=== PATIENT | male | born 1945 | race Caucasian/White ===

== ENCOUNTER 2022-11-15 09:17 | Outpatient (CLI) | payer MEDICARE ==
[~2022-11-15] VITALS: Ht 182.9 cm; Wt 82.1 kg
[2022-11-15 10:03] LABS: APTT 29 SECONDS (22-32)
[2022-11-15 10:05] LABS: ALANINE AMINOTRANSFERASE 23 U/L (12-78); ALBUMIN 3.8 G/DL (3.4-5.0); ALBUMIN/GLOBULIN RATIO 1.2 (1.1-1.5); ALKALINE PHOSPHATASE 108 IU/L (46-116); ANION GAP 3 (8-16); ASPARTATE AMINO TRANSFERASE 16 U/L (10-37); BILIRUBIN,TOTAL 1.7 MG/DL (0.1-1.0); BLOOD UREA NITROGEN 22 MG/DL (7-18); BUN/CREATININE RATIO 22.2 (10.0-20.0); CALCIUM 8.9 MG/DL (8.5-10.1); CHLORIDE 107 MMOL/L (99-107); CREATININE 0.99 MG/DL (0.60-1.10); GLUCOSE 129 MG/DL (70-104); SODIUM 139 MMOL/L (135-145); TOTAL CARBON DIOXIDE 28.7 MMOL/L (24-32); eGFR 74 ML/MIN
[2022-11-15 10:07] LABS: BASOPHILS # (AUTO) 0.1 X10'3 (0-0.2); BASOPHILS % (AUTO) 1.2 % (0-1); EOSINOPHILS # (AUTO) 0.1 X10'3 (0-0.9); EOSINOPHILS % (AUTO) 1.4 % (0-6); HEMOGLOBIN 15.3 g/dl (14.0-17.9); LYMPHOCYTES # (AUTO) 1.7 X10'3 (1.1-4.8); LYMPHOCYTES % (AUTO) 23.7 % (21-51); MEAN CORPUSCULAR HEMOGLOBIN 29.3 PG (27.0-31.0); MEAN CORPUSCULAR HGB CONC 33.3 g/dL (33.0-36.5); MEAN CORPUSCULAR VOLUME 87.8 FL (78-98); MEAN PLATELET VOLUME 7.7 FL (7.4-10.4); MONOCYTES # (AUTO) 0.6 X10'3 (0-0.9); MONOCYTES % (AUTO) 8.6 % (2-12); NEUTROPHILS # (AUTO) 4.7 X10'3 (1.8-7.7); NEUTROPHILS % (AUTO) 65.1 % (42-75); PLATELET COUNT 201 X10'3 (140-440); RED BLOOD COUNT 5.24 X10'6 (4.70-6.10); RED CELL DISTRIBUTION WIDTH 14.3 % (11.5-14.5); WHITE BLOOD COUNT 7.3 X10'3 (4.5-11.0)
[2022-11-15] MEDS ORDERED: IODIXANOL 320 MG/ML INFUS..BTL 100ML IV ONE (10:30)
[2022-11-15] MEDS ORDERED: albuterol 2.5 MG/3 ML nebule NEB ONE (11:50)
[2022-11-15 12:03] LABS: ABG BASE EXCESS -1.1 mmol/L (-2.0-2.0); ABG HCO3 22.3 mmol/L (22.0-26.0); ABG OXYGEN SATURATION 97.7 % (94-97); ALLEN'S TEST POSITIVE; FCOHb 1.5 % (0.0-3.9); FMetHb 0.3 % (0.0-1.5); FO2Hb 95.9 % (94-97); TOTAL HEMOGLOBIN 15.9 G/dl (14.0-17.9)
== END 2022-11-15 23:59 | disposition home or self-care (01) ==
LOC: RAD 09:17
PROVIDERS: ATTEND Internal Medicine Cardiovascular Disease
DX: K57.30 Diverticulosis of large intestine without perforation or abscess without bleeding (principal); R06.02 Shortness of breath; I65.23 Occlusion and stenosis of bilateral carotid arteries; R94.2 Abnormal results of pulmonary function studies; I35.8 Other nonrheumatic aortic valve disorders; M47.814 Spondylosis without myelopathy or radiculopathy, thoracic region; Z90.49 Acquired absence of other specified parts of digestive tract
CPT/HCPCS: 36415; 36600; 71046; 71275; 74174; 80053; 82803; 83880; 85018; 85025; 85610; 85730; 93880; 94060; 94727; 94729; 94760; J3490; Q9967

== ENCOUNTER 2022-12-21 05:38 | Inpatient (IN) | payer MEDICARE ==
[2022-12-14 14:38] LABS: BASOPHILS # (AUTO) 0.1 X10'3 (0-0.2); BASOPHILS % (AUTO) 0.8 % (0-1); CLARITY,URINE CLEAR (Clear); COLOR,URINE YELLOW (Yellow); EOSINOPHILS # (AUTO) 0.1 X10'3 (0-0.9); EOSINOPHILS % (AUTO) 1.6 % (0-6); GLUCOSE, URINE NEGATIVE (Neg); KETONES,URINE NEGATIVE (Neg); LEUKOCYTE ESTERASE ,URINE NEGATIVE (Neg); LYMPHOCYTES # (AUTO) 1.6 X10'3 (1.1-4.8); LYMPHOCYTES % (AUTO) 23.4 % (21-51); MEAN CORPUSCULAR HEMOGLOBIN 29.7 PG (27.0-31.0); MEAN CORPUSCULAR HGB CONC 33.8 g/dL (33.0-36.5); MEAN CORPUSCULAR VOLUME 87.7 FL (78-98); MEAN PLATELET VOLUME 7.7 FL (7.4-10.4); MONOCYTES # (AUTO) 0.6 X10'3 (0-0.9); MONOCYTES % (AUTO) 8.6 % (2-12); NEUTROPHILS # (AUTO) 4.5 X10'3 (1.8-7.7); NEUTROPHILS % (AUTO) 65.6 % (42-75); NITRITES, URINE NEGATIVE (Neg); OCCULT BLOOD,URINE NEGATIVE (Neg); PH,URINE 5.5 (4.8-8.0); PRE OP HEMATOCRIT 44.7 % (42.0-52.0); PRE OP HEMOGLOBIN 15.1 g/dL (14.0-17.9); PRE OP PLATELET COUNT 180 X10'3 (140-440); PROTEIN,URINE NEGATIVE (Neg); RED CELL DISTRIBUTION WIDTH 14.3 % (11.5-14.5); UROBILINOGEN,URINE 0.2 E.U/dL (0.2-1.0)
[2022-12-14 14:47] LABS: UA COLLECTION TYPE NON-SPECIFIED
[2022-12-14 14:55] LABS: PRE OP PROTIME 11.1 SECONDS (9.0-12.0)
[2022-12-14 14:59] LABS: ALBUMIN 3.8 G/DL (3.4-5.0); ALBUMIN/GLOBULIN RATIO 1.2 (1.1-1.5); ALKALINE PHOSPHATASE 108 IU/L (46-116); BLOOD UREA NITROGEN 24 MG/DL (7-18); BUN/CREATININE RATIO 22.6 (10.0-20.0); CALCIUM 8.6 MG/DL (8.5-10.1); CHLORIDE 106 MMOL/L (99-107); CREATININE 1.06 MG/DL (0.60-1.10); PRE OP ALT 22 U/L (30-65); PRE OP ANION GAP 8 (8-16); PRE OP AST 18 U/L (10-37); PRE OP BILIRUB, TOTAL 1.5 MG/DL (0.0-1.0); PRE OP GLUCOSE 126 MG/DL (70-104); PRE OP POTASSIUM 3.7 MMOL/L (3.4-5.1); PRE OP SODIUM 143 MMOL/L (135-145); TOTAL CARBON DIOXIDE 29.3 MMOL/L (24-32); TOTAL PROTEIN 7.1 G/DL (6.4-8.2); eGFR 68 ML/MIN
[~2022-12-21] VITALS: Ht 182.9 cm; Wt 80.3 kg
[2022-12-21] VITALS (17 sets, daily range): BP systolic 99–133; BP diastolic 55–79
[~2022-12-21 05:38] MED LIST: ASPI-1071 PO; ATEN25TA PO; CHOL10006 PO; DOCUMENT DATE & TIME OF BETA-BLOCKER PO ONE; MAGN250T11 PO; aspirin 325mg tablet PO ONE; cefazolin 2gm/D5W 100mL 100 ML IV ONE; famotidine 20mg tablet PO ONE; nitroPRUSSIDE (NIPRIDE) (200MCG/ML) 100ML Drip IV SCH; ondansetron/PF 4mg/2ml inj IV PRN; phenylephrine inj 50 MG in normal saline 250ml IV solN IV SCH; ringers solution, lacted 1,000 ML IV SCH; vancomycin 1,500 MG in NS 300ml IV soln IV ONE
[2022-12-21] MEDS ORDERED: iohexol 350MG/ML 100ml bottle IV ONE (08:16)
[2022-12-21] MEDS ORDERED: heparin 1,000 UNITS/NS 500ml 1,500 ML ONE (08:17)
[2022-12-21] MEDS ORDERED: fentaNYL/PF 50MCG/1 ML 2ML syringe ONE (08:58)
[2022-12-21] MEDS ORDERED: LIDOcaine 1% (10mg/ml)w/preservative inj. 20ml MDV ONE (08:59)
[2022-12-21] MEDS ORDERED: midazolam 1 mg/ML 2ml injection ONE (09:12)
[2022-12-21] MEDS ORDERED: propofol inj 20 ML IV ONE ×3 (09:12)
[2022-12-21] MEDS ORDERED: protamine sulfate 10mg/ml inj. ONE (09:17)
[2022-12-21] MEDS ORDERED: heparin 1,000unit/ml 10ml vial 10 ML ONE (09:25)
[2022-12-21] MEDS ORDERED: acetaminophen 325mg tablet PO PRN (10:20)
[2022-12-21] MEDS ORDERED: labetalol 20mg/4ml (5mg/ml) syringe IV PRN ×2 (10:20→10:30)
[2022-12-21] MEDS ORDERED: pantoprazole 40mg Tablet.DR PO PRN (10:20)
[2022-12-21] MEDS ORDERED: potassium Cl 40MEQ/1/2NS 520ml 520 ML IV PRN (10:20)
[2022-12-21] MEDS ORDERED: HYDROcodone/acetaminophen 5mg/325mg tablet PO PRN (10:20)
[2022-12-21] MEDS ORDERED: hydrALAZINE 20mg/ml inj. IV PRN ×2 (10:20→10:30)
[2022-12-21] MEDS ORDERED: proCHLORperazine 10 MG/2 ml inj IV PRN ×2 (10:20→10:30)
[2022-12-21] MEDS ORDERED: magnesium 2GM in 50ml NS 50 ML IV PRN (10:20)
[2022-12-21] MEDS ORDERED: docusate sod 100mg capsule PO PRN (10:20)
[2022-12-21] MEDS ORDERED: ondansetron/PF 4mg/2ml inj IV PRN ×2 (10:20→10:30)
[2022-12-21] MEDS ORDERED: magnesium 4gm in 100ml NS 100 ML IV PRN (10:20)
[2022-12-21] MEDS ORDERED: potassium CL 10mEq/100ml bag 100 ML IV PRN (10:20)
[2022-12-21] MEDS ORDERED: potassium Cl 40MEQ/270ML bag 270 ML IV PRN (10:20)
[2022-12-21] MEDS ORDERED: potassium Cl 20mEq/100mL bag 100 ML IV PRN (10:20)
[2022-12-21] MEDS ORDERED: diphenhydrAMINE 25mg capsule PO PRN (10:20)
[2022-12-21] MEDS ORDERED: potassium Cl 20 mEq SR tablet PO PRN (10:20)
[2022-12-21] MEDS ORDERED: ALPRAZolam 0.25mg tablet PO PRN (10:20)
--- NOTE | 2022-12-21 10:26 | NUR ---
Received from OR via BED, accompanied by Anesthesiologist DR. CHAUDHRY and report given by Anesthesiologist AND OR NURSE. PT ARRIVED DROWSY BUT ABLE TO RESPOND TO VERBAL STIMULI ON 6 L OF 02 VIA MASK. VSS. PT HAS 20 G IV TO RIGHT AC AND ART LINE TO RIGHT WRIST AND PRESSURE DEVICE INTACT. PT HAS DRESSING TO BILATERAL GROIN THAT IS C/D/I, NO SWELLING OR BLEEDING NOTED. LR CURRENTLY RUNNING. NEURO ASSESSMENT COMPLETED. PUSH, PULL, CALL CENTER NURSE, SMILE ALL WITHIN NORMAL LIMITS. BILATERAL PEDAL PULSES STRONG. VSS. WILL CONTINUE TO MONITOR AND RECHECK GROIN SITES. Addendum: 12/21/22 at 1102 by Juanjose Armstrong RN Amended: Links added.
[2022-12-21] MEDS ORDERED: meperidine/PF 25mg/ml syringe IV PRN ×3 (10:30)
[2022-12-21] MEDS ORDERED: acetaminophen 1,000mg/100ml IV 100 ML IV PRN (10:30)
[2022-12-21] MEDS ORDERED: morphine 4 MG/ML inj SYRINge IV PRN (10:30)
[2022-12-21] MEDS ORDERED: ringers solution, lacted 1,000 ML IV SCH (10:30)
[2022-12-21] MEDS ORDERED: morphine 2 MG/ML inj. syringe IV PRN (10:30)
--- NOTE | 2022-12-21 11:15 | NUR ---
DISCONTINUE RIGHT RADIAL ARTLINE WITH MANUAL PRESSURE. HEMOSTASIS IS OBTAINED AFTER 5 MINUTES WITH NO S/S OF BLEEDING OR HEMATOMA. APPLIED GAUZE AND COBAN THAT IS C/D/I.
--- NOTE | 2022-12-21 11:36 | NUR ---
PATIENT HAS MET ALL CRITERIA FOR TRANSFER TO SHIRT-STAY FLOOR. VSS. DRESSINGS INTACT. BED LOW, CALL LIGHT PRESENT AND 2 RAILS UP. RN PRESENT TO ACCEPT CARE OF PATIENT AND REPORT HAS BEEN CALLED. ALL QUESTIONS ANSWERED TO ACCEPTING RN. Addendum: 12/21/22 at 1150 by Juanjose Armstrong RN Amended: Links added.
[2022-12-21] MEDS: normal saline 1000ml 1,000 ML IV SCH ×2 (14:53→20:20)
--- NOTE | 2022-12-21 17:27 | NUR ---
Patient in room PCU 3013. Pt just arrived to the unit. I have received report from BONITA Blankenship from [facility] and had the opportunity to ask questions and assume patient care.
--- NOTE | 2022-12-21 18:41 | NUR ---
Bedside report beejsoue-ZDS-xiniog and groin sites CDI-soft to palpation-Warm blankets wrapped around shoulder for repositioning and comfort Addendum: 12/21/22 at 1844 by Pattie Aden RN Amended: Links added.
[2022-12-21] MEDS: ceFAZolin 1GM/D5W- ADD-VANTAGE 50 ML IV SCH (19:08)
[2022-12-21] MEDS: sod chloride 0.9% 10ml flush syringe IV SCH (19:09)
[2022-12-21] MEDS: vancomycin/NS 1 GM ADD-VANTAGE 250 ML IV SCH (20:33)
[2022-12-22] MEDS: sod chloride 0.9% 10ml flush syringe IV SCH ×2 (00:20→08:12)
[2022-12-22] MEDS: ceFAZolin 1GM/D5W- ADD-VANTAGE 50 ML IV SCH ×2 (00:23→09:02)
[2022-12-22 02:00] VITALS: BP 108/54
[2022-12-22] MEDS: normal saline 1000ml 1,000 ML IV SCH (03:36)
[2022-12-22 06:00] VITALS: BP 119/70
--- NOTE | 2022-12-22 06:20 | NUR ---
Patient in room PCU 3013. I have received report from BONITA Reyes and had the opportunity to ask questions and assume patient care.
--- NOTE | 2022-12-22 06:28 | NUR ---
Problems reprioritized. Patient report given, questions answered & plan of care reviewed with Shelly MESA. Addendum: 12/22/22 at 0629 by Amy Overton RN Amended: Links added.
[2022-12-22 07:12] LABS: BASOPHILS # (AUTO) 0.1 X10'3 (0-0.2); BASOPHILS % (AUTO) 0.7 % (0-1); EOSINOPHILS # (AUTO) 0.1 X10'3 (0-0.9); EOSINOPHILS % (AUTO) 1.1 % (0-6); HEMATOCRIT 41.1 % (42.0-52.0); HEMOGLOBIN 13.6 g/dl (14.0-17.9); LYMPHOCYTES # (AUTO) 1.2 X10'3 (1.1-4.8); LYMPHOCYTES % (AUTO) 15.3 % (21-51); MEAN CORPUSCULAR HGB CONC 33.1 g/dL (33.0-36.5); MEAN CORPUSCULAR VOLUME 87.5 FL (78-98); MEAN PLATELET VOLUME 7.7 FL (7.4-10.4); MONOCYTES # (AUTO) 0.7 X10'3 (0-0.9); MONOCYTES % (AUTO) 8.7 % (2-12); NEUTROPHILS # (AUTO) 5.9 X10'3 (1.8-7.7); NEUTROPHILS % (AUTO) 74.2 % (42-75); PLATELET COUNT 126 X10'3 (140-440); RED BLOOD COUNT 4.69 X10'6 (4.70-6.10); RED CELL DISTRIBUTION WIDTH 14.3 % (11.5-14.5); WHITE BLOOD COUNT 7.9 X10'3 (4.5-11.0)
[2022-12-22 07:44] LABS: ALANINE AMINOTRANSFERASE 14 U/L (12-78); ALBUMIN 2.9 G/DL (3.4-5.0); ALKALINE PHOSPHATASE 88 IU/L (46-116); ANION GAP 11 (8-16); ASPARTATE AMINO TRANSFERASE 20 U/L (10-37); BILIRUBIN,TOTAL 1.7 MG/DL (0.1-1.0); BLOOD UREA NITROGEN 17 MG/DL (7-18); BUN/CREATININE RATIO 18.9 (10.0-20.0); CHLORIDE 107 MMOL/L (99-107); GLUCOSE 103 MG/DL (70-104); MAGNESIUM 1.9 MG/DL (1.5-2.4); POTASSIUM 3.9 MMOL/L (3.5-5.1); SODIUM 140 MMOL/L (135-145); TOTAL CARBON DIOXIDE 21.9 MMOL/L (24-32); TOTAL PROTEIN 5.9 G/DL (6.4-8.2); eGFR 82 ML/MIN
[2022-12-22] MEDS ORDERED: atenolol 25mg tablet PO SCH (08:00)
[2022-12-22] MEDS ORDERED: magnesium oxide 400mg tablet PO SCH (08:00)
[2022-12-22] MEDS ORDERED: aspirin 81mg, enteric-coated 1 TAB TABLET.DR PO SCH (08:00)
[2022-12-22] MEDS ORDERED: cholecalciferol (vitamin D3) 1,000 unit (25mcg) tablet PO SCH (08:00)
[2022-12-22] MEDS ORDERED: aspirin 81mg tab.chew PO SCH (08:30)
[2022-12-22] MEDS: vancomycin/NS 1 GM ADD-VANTAGE 250 ML IV SCH (10:22)
[2022-12-22 11:00] VITALS: BP 151/80
[2022-12-22] MEDS ORDERED: magnesium 2GM in 50ml NS 50 ML IV ONE (12:45)
[2022-12-22 14:30] VITALS: BP 127/67
--- NOTE | 2022-12-22 15:19 | NUR ---
BP monitored Q15min while administering magnesium @ 50mg/hr per order by Angelica Rawls NP. BP remained WNL.
--- NOTE | 2022-12-22 15:30 | NUR ---
DC inst provided to pt. IV DC'd, tip intact. All belongings sent w/pt. Pt ambulated to vehicle.
== END 2022-12-22 15:43 | disposition home or self-care (01) | DRG 266 ==
LOC: PAS IN 05:38 → PCU 3S 16:57
PROVIDERS: ADMIT Internal Medicine Cardiovascular Disease; ATTEND Internal Medicine Cardiovascular Disease
PROC: 027F3ZZ Dilation of Aortic Valve, Percutaneous Approach (ICD-10-PCS; 2022-12-21)
PROC: B41D1ZZ Fluoroscopy of Aorta and Bilateral Lower Extremity Arteries using Low Osmolar Contrast (ICD-10-PCS; 2022-12-21)
PROC: 02RF38Z Replacement of Aortic Valve with Zooplastic Tissue, Percutaneous Approach (ICD-10-PCS; principal; 2022-12-21 08:52)
DX: I08.3 Combined rheumatic disorders of mitral, aortic and tricuspid valves (principal); Z00.6 Encounter for examination for normal comparison and control in clinical research program; I50.43 Acute on chronic combined systolic (congestive) and diastolic (congestive) heart failure; I11.0 Hypertensive heart disease with heart failure; K21.9 Gastro-esophageal reflux disease without esophagitis; I49.3 Ventricular premature depolarization; I44.0 Atrioventricular block, first degree; Z79.899 Other long term (current) drug therapy; Z79.82 Long term (current) use of aspirin
CPT/HCPCS: 33361; 36415; 71045; 71046; 76937; 80053; 81003; 82948; 83735; 83880; 85025; 85347; 85610; 85730; 86885; 86900; 86901; 86920; 87081; 92986; 93005; 93308; A4618; A6258; A6449; C1725; C1756; C1760; C1769; C1894; G0378; J0690; J1644; J2250; J2370; J2704; J2720; J3010; J3370; J3475; J3490; J7030; J7040; J7050; J7120; Q9967

== ENCOUNTER 2023-11-08 13:02 | Inpatient (IN) | payer MEDICARE ==
[~2023-11-08] VITALS: Ht 177.8 cm; Wt 75.0 kg
[~2023-11-08 13:02] MED LIST changes: -DOCUMENT DATE & TIME OF BETA-BLOCKER PO ONE; -aspirin 325mg tablet PO ONE; -cefazolin 2gm/D5W 100mL 100 ML IV ONE; -famotidine 20mg tablet PO ONE; -nitroPRUSSIDE (NIPRIDE) (200MCG/ML) 100ML Drip IV SCH; -ondansetron/PF 4mg/2ml inj IV PRN; -phenylephrine inj 50 MG in normal saline 250ml IV solN IV SCH; -ringers solution, lacted 1,000 ML IV SCH; -vancomycin 1,500 MG in NS 300ml IV soln IV ONE
[2023-11-08 13:34] LABS: BASOPHILS # (AUTO) 0.1 X10'3 (0-0.2); BASOPHILS % (AUTO) 0.9 % (0-1); EOSINOPHILS % (AUTO) 0.5 % (0-6); HEMATOCRIT 46.3 % (42.0-52.0); HEMOGLOBIN 15.6 g/dl (14.0-17.9); LYMPHOCYTES # (AUTO) 1.5 X10'3 (1.1-4.8); LYMPHOCYTES % (AUTO) 18.3 % (21-51); MEAN CORPUSCULAR HEMOGLOBIN 29.9 PG (27.0-31.0); MEAN CORPUSCULAR HGB CONC 33.6 g/dL (33.0-36.5); MEAN PLATELET VOLUME 7.7 FL (7.4-10.4); MONOCYTES # (AUTO) 0.7 X10'3 (0-0.9); MONOCYTES % (AUTO) 7.9 % (2-12); NEUTROPHILS % (AUTO) 72.4 % (42-75); PLATELET COUNT 179 X10'3 (140-440); RED CELL DISTRIBUTION WIDTH 14.5 % (11.5-14.5); WHITE BLOOD COUNT 8.3 X10'3 (4.5-11.0)
[2023-11-08 13:44] LABS: ALANINE AMINOTRANSFERASE 20 U/L (12-78); ALBUMIN 4.1 G/DL (3.4-5.0); ALKALINE PHOSPHATASE 118 IU/L (46-116); ANION GAP 7 (8-16); ASPARTATE AMINO TRANSFERASE 18 U/L (10-37); BILIRUBIN,TOTAL 1.9 MG/DL (0.1-1.0); BLOOD UREA NITROGEN 22 MG/DL (7-18); BUN/CREATININE RATIO 21.8 (10.0-20.0); CALCIUM 9.4 MG/DL (8.5-10.1); CHLORIDE 106 MMOL/L (99-107); CREATININE 1.01 MG/DL (0.60-1.10); GLUCOSE 115 MG/DL (70-104); SODIUM 141 MMOL/L (135-145); TOTAL CARBON DIOXIDE 27.9 MMOL/L (24-32); TOTAL PROTEIN 8.3 G/DL (6.4-8.2); eCRCL 64 ML/MIN; eGFR 72 ML/MIN
[2023-11-08 13:53] LABS: PRO BRAIN NATRIURETIC PEPTIDE 1469 PG/ML (0-450)
[2023-11-08] MEDS ORDERED: magnesium 2GM in 50ml NS 50 ML IV PRN (17:30)
[2023-11-08] MEDS ORDERED: potassium Cl 20 mEq SR tablet PO PRN ×2 (17:30)
[2023-11-08] MEDS ORDERED: magnesium Cl slow-release 64mg tablet PO PRN (17:30)
[2023-11-08] MEDS ORDERED: magnesium 4gm in 100ml NS 100 ML IV PRN (17:30)
[2023-11-08] MEDS ORDERED: ondansetron/PF 4mg/2ml inj IV PRN (17:30)
[2023-11-08] MEDS ORDERED: potassium Cl 40MEQ/1/2NS 520ml 520 ML IV PRN (17:30)
[2023-11-08] MEDS: K and/or MAG REPLACEMENT MC SCH (20:00)
[2023-11-09 07:44] LABS: BASOPHILS # (AUTO) 0.1 X10'3 (0-0.2); BASOPHILS % (AUTO) 0.8 % (0-1); EOSINOPHILS # (AUTO) 0.1 X10'3 (0-0.9); EOSINOPHILS % (AUTO) 1.9 % (0-6); HEMATOCRIT 45.8 % (42.0-52.0); HEMOGLOBIN 15.4 g/dl (14.0-17.9); LYMPHOCYTES # (AUTO) 1.8 X10'3 (1.1-4.8); LYMPHOCYTES % (AUTO) 23.4 % (21-51); MEAN CORPUSCULAR HEMOGLOBIN 29.5 PG (27.0-31.0); MEAN CORPUSCULAR HGB CONC 33.6 g/dL (33.0-36.5); MEAN CORPUSCULAR VOLUME 87.9 FL (78-98); MEAN PLATELET VOLUME 7.3 FL (7.4-10.4); MONOCYTES # (AUTO) 0.6 X10'3 (0-0.9); MONOCYTES % (AUTO) 8.3 % (2-12); NEUTROPHILS % (AUTO) 65.6 % (42-75); PLATELET COUNT 170 X10'3 (140-440); RED BLOOD COUNT 5.21 X10'6 (4.70-6.10); RED CELL DISTRIBUTION WIDTH 14.2 % (11.5-14.5); WHITE BLOOD COUNT 7.6 X10'3 (4.5-11.0)
[2023-11-09 07:54] LABS: ALBUMIN 3.5 G/DL (3.4-5.0); ANION GAP 7 (8-16); BLOOD UREA NITROGEN 21 MG/DL (7-18); BUN/CREATININE RATIO 23.6 (10.0-20.0); CALCIUM 8.8 MG/DL (8.5-10.1); CHLORIDE 107 MMOL/L (99-107); CREATININE 0.89 MG/DL (0.60-1.10); GLUCOSE 105 MG/DL (70-104); MAGNESIUM 2.2 MG/DL (1.5-2.4); SODIUM 140 MMOL/L (135-145); TOTAL CARBON DIOXIDE 26.1 MMOL/L (24-32); eCRCL 73 ML/MIN; eGFR 83 ML/MIN
[2023-11-09 16:31] VITALS: RESP 16
[2023-11-09 16:43] VITALS: BP 143/65; PULSE 64; RESP 16; TEMP 97.4; O2SAT 16
[2023-11-09] MEDS: aspirin 81mg, enteric-coated 1 TAB TABLET.DR PO SCH (17:21)
[2023-11-09 18:00] VITALS: BP 106/67; PULSE 62; RESP 16; TEMP 99.5; O2SAT 95
[2023-11-09 20:00] VITALS: BP_SYST 137; BP_SYST 140; BP_SYST 141; BP_SYST 146; BP_DIAS 76; BP_DIAS 77; BP_DIAS 81; PULSE 60; PULSE 63; PULSE 64; PULSE 81; RESP 16
[2023-11-09] MEDS: atorvastatin 20mg tablet PO SCH (20:00)
[2023-11-09] MEDS: enoxaparin 40mg/0.4ml syringe SUBCUT SCH (20:00)
[2023-11-09 22:00] VITALS: BP 140/77; PULSE 64; RESP 15; RESP 16; TEMP 97.3; O2SAT 100; O2SAT 16
[2023-11-10 02:00] VITALS: BP 118/68; PULSE 63; RESP 14; TEMP 97.3; O2SAT 97
[2023-11-10 05:57] LABS: BASOPHILS % (AUTO) 0.6 % (0-1); EOSINOPHILS # (AUTO) 0.1 X10'3 (0-0.9); EOSINOPHILS % (AUTO) 1.9 % (0-6); HEMATOCRIT 45.3 % (42.0-52.0); HEMOGLOBIN 15.1 g/dl (14.0-17.9); LYMPHOCYTES # (AUTO) 1.7 X10'3 (1.1-4.8); LYMPHOCYTES % (AUTO) 22.1 % (21-51); MEAN CORPUSCULAR HEMOGLOBIN 29.6 PG (27.0-31.0); MEAN CORPUSCULAR HGB CONC 33.4 g/dL (33.0-36.5); MEAN CORPUSCULAR VOLUME 88.4 FL (78-98); MEAN PLATELET VOLUME 8.2 FL (7.4-10.4); MONOCYTES # (AUTO) 0.6 X10'3 (0-0.9); MONOCYTES % (AUTO) 8.6 % (2-12); NEUTROPHILS % (AUTO) 66.8 % (42-75); PLATELET COUNT 159 X10'3 (140-440); RED BLOOD COUNT 5.13 X10'6 (4.70-6.10); RED CELL DISTRIBUTION WIDTH 14.3 % (11.5-14.5); WHITE BLOOD COUNT 7.5 X10'3 (4.5-11.0)
[2023-11-10 05:59] LABS: ALBUMIN 3.2 G/DL (3.4-5.0); ANION GAP 10 (8-16); BLOOD UREA NITROGEN 24 MG/DL (7-18); BUN/CREATININE RATIO 26.7 (10.0-20.0); CALCIUM 8.9 MG/DL (8.5-10.1); CHLORIDE 104 MMOL/L (99-107); GLUCOSE 93 MG/DL (70-104); SODIUM 138 MMOL/L (135-145); TOTAL CARBON DIOXIDE 24.2 MMOL/L (24-32); eCRCL 72 ML/MIN; eGFR 82 ML/MIN
[2023-11-10 07:23] VITALS: BP 126/96; PULSE 72; RESP 26; TEMP 98.1; O2SAT 98
[2023-11-10 11:00] VITALS: BP 131/73; PULSE 67; RESP 16; TEMP 96; O2SAT 96
[2023-11-10 11:46] LABS: CHOL/HDL RATIO 3.3 (0.00-4.99); CHOLESTEROL 125 MG/DL (0-200); HDL CHOLESTEROL 38 MG/DL (35-60); LDL CHOLESTEROL 73 MG/DL (50-100); TRIGLYCERIDES 107 MG/DL (20-135)
== END 2023-11-10 15:00 | disposition home or self-care (01) | DRG 309 ==
LOC: ER 13:03 → UNDOADMOB 17:34 → INTOOBSV 17:34 → ED HOLD 17:34 → PCU 3S 11-09 16:00 → ED HOLD 11-09 16:00 → PCU 3S 11-09 17:34 → UNDOADMOB 11-09 17:34 → PCU 3S 11-09 17:34 → INTOOBSV 11-10 10:40 → OBSVTOIN 11-10 10:40 → UNDODISOB 11-10 15:00
PROVIDERS: ADMIT Internal Medicine; ATTEND Internal Medicine
DX: I44.1 Atrioventricular block, second degree (principal); I50.32 Chronic diastolic (congestive) heart failure; R00.1 Bradycardia, unspecified; K21.9 Gastro-esophageal reflux disease without esophagitis; I48.91 Unspecified atrial fibrillation; I11.0 Hypertensive heart disease with heart failure; I35.0 Nonrheumatic aortic (valve) stenosis; Z90.49 Acquired absence of other specified parts of digestive tract; Z79.82 Long term (current) use of aspirin; Z79.899 Other long term (current) drug therapy
CPT/HCPCS: 36415; 71045; 80048; 80053; 80061; 82948; 83735; 83880; 84484; 85025; 87081; 93005; 93306; 99285; G0378